=== PATIENT | female | born 1955 | race Two or more races ===

== ENCOUNTER 2019-02-02 12:53 | Observation (INO) | payer BC ==
[2019-02-02] MEDS ORDERED: Ondansetron INJ* 2 MG/ML VIAL IV ONE (13:14)
[2019-02-02] MEDS ORDERED: NS 0.9% 1000 ML** 1,000 ML IV ONE ×2 (13:14→16:40)
[2019-02-02] MEDS ORDERED: Meclizine TAB* 12.5 MG PO ONE (13:14)
[2019-02-02] MEDS ORDERED: Lorazepam PYXIS KEY PRN (13:23)
[2019-02-02] MEDS ORDERED: LORazepam INJ* 2 MG/ML 1 ML VIAL IV PUSH ONE (13:23)
[2019-02-02] MEDS ORDERED: Lorazepam PYXIS KEY ONE (13:27)
[2019-02-02 13:30] LABS: ABS Lymphocytes 1.8 10^3/ul (1.0-4.8); ABS Monocytes 0.4 10^3/ul (0-0.8); ABS Neutrophils 5.8 10^3/ul (1.5-7.7); Eosinophil % 0.2 %; Hematocrit 43 % (35-47); Hemoglobin 14.9 g/dL (12.0-16.0); Lymphocyte % 22.2 %; Mean Corpuscular HGB Conc 35 g/dL (31-36); Mean Corpuscular Hemoglobin 30 pg (27-31); Mean Corpuscular Volume 88 fL (80-97); Mean Platelet Volume 7.8 fL (7.4-10.4); Platelet Count 346 10^3/uL (150-450); Red Cell Distribution Width 13 % (10-15); White Blood Count 7.9 10^3/uL (3.5-10.8)
[2019-02-02 13:35] LABS: INR 1.1 (0.82-1.09)
[2019-02-02 13:46] LABS: Activated Partial Thrombo Time 30.6 seconds (26.0-38.0)
[2019-02-02 13:56] LABS: Albumin 4.5 g/dL (3.2-5.2); Albumin/Globulin Ratio 1.5 (1-3); BUN/Creatinine Ratio 19.3 (8-20); EGFR African American 129.2 (>60); EGFR Non-African American 106.8 (>60); Globulin 3.1 g/dL (2-4); Magnesium 1.7 mg/dL (1.9-2.7); Potassium 4.1 mmol/L (3.5-5.0); Total Bilirubin 0.5 mg/dL (0.2-1.0); Total Protein 7.6 g/dL (6.4-8.9)
--- NOTE | 2019-02-02 15:00 | ED ---
Dizziness - HPI Summary HPI Summary: This patient is a 63-year-old female with a history of ovarian cancer, treated in 2018 2008, as well as gastric bypass surgery 3 years ago, hypothyroidism presenting to the ED with chief complaint of dizziness and nausea x 6-7 days. She states her sxs began with LAMB and dizziness. Patient states she only feels well when she is lying flat and not moving. She states when attempting to move her head, she becomes very dizzy and nauseous. Sxs are worse with sided to side movement and better with up and down movement, however still present. Denies PO intake x 2 days d/t the dizziness and decreased PO intake over this week. No hx of vertigo. Hx of dehydration following gastric bypass and was hospitalized for this. She denies any LAMB at this time on arrival. She denies any abdominal pain, urinary symptoms, diarrhea or constipation. Last BM on , with no associated diarrhea or constipation. Pt unable to state if the room is spinning or she feels she is spinning. She continues to state "just dizziness" when asked. Nausea accompanying the dizziness only when lifting her head or turning her head from side to side. Denies visual changes at this time, but when moving head sided to side, it takes a minute for her to "focus." Denies blood thinners. Current medications include B12, levothyroxine, and ranitidine. Gastric bypass by Dr. Anton. PCP is Dr. Duque. - History Of Current Complaint Chief Complaint: EDNauseaVomitDiarrh Stated Complaint: GENERAL ILLNESS/WEAKNESS PER Time Seen by Provider: 02/02/19 13:09 Hx Obtained From: Patient, Family/Shape Hand Severity Initially: Severe Severity Currently: Severe Character: Dizzy, Unable To Describe Aggravating Factor(s): Position Change, Supine To Erect, Change In Head Position Alleviating Factor(s): Rest, Lying Down, Closing Eyes Associated Signs And Symptoms: Positive: Nausea, Inability to Walk. Negative: Diarrhea, Diaphoresis, Tinnitus, Chest Pain, Palpitations, Unsteady Gait, Visual Changes, Fever, Chills, Slurred Speech - Risk Factors Cardiac Risk Factors: Negative CVA Risk Factor: Negative - Allergies/Home Medications Allergies/Adverse Reactions: Allergies Allergy/AdvReac Type Severity Reaction Status Date / Time MS Bee Venom [Bee Venom] Allergy Unknown Anaphylatic Verified 11/13/15 06:54 Shock citric acid [From DDAVP] Allergy Unknown Verified 04/25/18 15:39 Reaction Details desmopressin [From DDAVP] Allergy Unknown Verified 04/25/18 15:39 Reaction Details MS Statins [Statins] Allergy AFFECTS Verified 11/13/15 06:54 LIVER sodium phosphate [From DDAVP] Allergy Unknown Verified 04/25/18 15:39 Reaction Details MS Aspirin [Aspirin] AdvReac Unknown VOMIT BLOOD Verified 11/13/15 06:54 MS Codeine [Codeine] AdvReac Unknown Rash Verified 11/13/15 06:54 MS Morphine [Morphine] AdvReac Unknown Vomiting Verified 11/13/15 06:54 MS Penicillins [PCN] AdvReac Unknown Hives Verified 11/13/15 06:54 PMH/Surg Hx/FS Hx/Imm Hx Previously Healthy: Yes Endocrine/Hematology History: Reports: Hx Thyroid Disease Denies: Hx Anticoagulant Therapy Cardiovascular History: Reports: Hx Hypercholesterolemia, Hx Hypertension, Other Cardiovascular Problems/Disorders - DVT RIGHT LEG - 2008 Respiratory History: Reports: Hx Sleep Apnea Comment Only: Hx Pulmonary Embolism - HX OF X 2 DURING CHEMOTHERPHY, 2008 GI History: Reports: Hx Gastroesophageal Reflux Disease, Hx Gastrointestinal Bleed, Hx Hiatal Hernia - REPAIRED 02/2015, Hx Ulcer History: Denies: Other Problems/Disorders Musculoskeletal History: Reports: Hx Arthritis, Other Musculoskeletal History - back surgery Denies: Hx Osteoporosis Sensory History: Reports: Hx Cataracts - BEGINNING BILATERAL, Hx Contacts or Glasses Denies: Hx Hearing Aid Opthamlomology History: Reports: Hx Cataracts - BEGINNING BILATERAL, Hx Contacts or Glasses Neurological History: Reports: Hx Migraine, Hx Seizures - 33 yrs ago - Cancer History Cancer Type, 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 hysterectomy. 2016 lap gastric sleeve. Cancer staging surgery. 3 c-sections. Oopherectomy Hx Anesthesia Reactions: No Infectious Disease History: No Infectious Disease History: Reports: Traveled Outside the [place] in Last 30 Days Denies: Hx Clostridium Difficile, Hx Hepatitis, Hx Human Immunodeficiency Virus (HIV), Hx of Known/Suspected MRSA, Hx Shingles, Hx Tuberculosis - STATES WILL TEST POSITIVE DUE TO TYPE OF VACCINE GIVEN IN [place], Hx Known/Suspected VRE, Hx Known/Suspected VRSA, History Other Infectious Disease - Social History Occupation: Unemployed Lives: With Family Alcohol Use: Rare Alcohol Amount: 1 month Substance Use Type: Reports: None Smoking Status (MU): Former Smoker Type: Cigarettes Amount Used/How Often: 2 PPD Have You Smoked in the Last Year: No Review of Systems Positive: Skin Diaphoresis. Negative: Fever, Chills, Fatigue Negative: Photophobia, Blurred Vision Negative: Palpitations, Chest Pain Negative: Shortness Of Breath, Cough Positive: Nausea Genitourinary: Negative Neurological: Other - dizziness All Other Systems Reviewed And Are Negative: Yes Physical Exam Triage Information Reviewed: Yes Vital Signs On Initial Exam: Initial Vitals Temp Pulse Resp BP Pulse Ox 96.9 F 85 26 155/76 100 02/02/19 12:57 02/02/19 12:57 02/02/19 12:57 02/02/19 12:57 02/02/19 12:57 Vital Signs Reviewed: Yes Appearance: Positive: Ill-Appearing Skin: Positive: Diaphoretic Head/Face: Positive: Normal Head/Face Inspection Eyes: Positive: EOMI, VAMSI, Conjunctiva Clear Neck: Positive: Supple, Nontender, No Lymphadenopathy Respiratory/Lung Sounds: Positive: Clear to Auscultation, Breath Sounds Present Cardiovascular: Positive: RRR, Pulses are Symmetrical in both Upper and Lower Extremities Abdomen Description: Positive: Nontender, Soft Musculoskeletal: Positive: Normal Neurological: Positive: Sensory/Motor Intact, Alert, Oriented to Person Place, Time, Finger to Nose - intact, Speech Normal Psychiatric: Positive: Normal, Affect/Mood Appropriate Procedures - Sedation Patient Received Moderate/Deep Sedation with Procedure: No Diagnostics - Vital Signs Vital Signs Temp Pulse Resp BP Pulse Ox 02/02/19 14:00 59 100 02/02/19 13:39 14 02/02/19 13:12 142 91 02/02/19 12:57 96.9 F 85 26 155/76 100 - Laboratory Lab Results: Lab Results 02/02/19 02/02/19 02/02/19 Range/Units 13:18 13:18 13:18 WBC 7.9 (3.5-10.8) 10^3/uL RBC 4.90 H (3.70-4.87) 10^6 /uL Hgb 14.9 (12.0-16.0) g/dL Hct 43 (35-47) % MCV 88 (80-97) fL MCH 30 (27-31) pg MCHC 35 (31-36) g/dL RDW 13 (10-15) % Plt Count 346 (150-450) 10^3/uL MPV 7.8 (7.4-10.4) fL Neut % (Auto) 72.6 % Lymph % (Auto) 22.2 % [place] % (Auto) 4.6 % Eos % (Auto) 0.2 % Baso % (Auto) 0.4 % Absolute Neuts (auto) 5.8 (1.5-7.7) 10^3/ul Absolute Lymphs (auto) 1.8 (1.0-4.8) 10^3/ul Absolute Monos (auto) 0.4 (0-0.8) 10^3/ul Absolute Eos (auto) 0.0 (0-0.6) 10^3/ul Absolute Basos (auto) 0.0 (0-0.2) 10^3/ul Absolute Nucleated RBC 0.0 10^3/ul Nucleated RBC % 0.0 INR (Anticoag Therapy) 1.10 H (0.82-1.09) APTT 30.6 (26.0-38.0) seconds Sodium 137 (135-145) mmol/L Potassium 4.1 (3.5-5.0) mmol/L Chloride 99 L (101-111) mmol/L Carbon Dioxide 18 L (22-32) mmol/L Anion Gap 20 H (2-11) mmol/L BUN 11 (6-24) mg/dL Creatinine 0.57 (0.51-0.95) mg/dL Est GFR ( Amer) 129.2 (>60) Est GFR (Non-Af Amer) 106.8 (>60) BUN/Creatinine Ratio 19.3 (8-20) Glucose 114 H (70-100) mg/dL Calcium 10.0 (8.6-10.3) mg/dL Magnesium 1.7 L (1.9-2.7) mg/dL Total Bilirubin 0.50 (0.2-1.0) mg/dL AST 48 H (13-39) U/L ALT 12 (7-52) U/L Alkaline Phosphatase 71 (34-104) U/L Troponin I 0.00 (<0.03) ng/mL Total Protein 7.6 (6.4-8.9) g/dL Albumin 4.5 (3.2-5.2) g/dL Globulin 3.1 (2-4) g/dL Albumin/Globulin Ratio 1.5 (1-3) TSH (0.34-5.60) mcIU/mL 02/02/19 Range/Units 13:19 WBC (3.5-10.8) 10^3/uL RBC (3.70-4.87) 10^6 /uL Hgb (12.0-16.0) g/dL Hct (35-47) % MCV (80-97) fL MCH (27-31) pg MCHC (31-36) g/dL RDW (10-15) % Plt Count (150-450) 10^3/uL MPV (7.4-10.4) fL Neut % (Auto) % Lymph % (Auto) % [place] % (Auto) % Eos % (Auto) % Baso % (Auto) % Absolute Neuts (auto) (1.5-7.7) 10^3/ul Absolute Lymphs (auto) (1.0-4.8) 10^3/ul Absolute Monos (auto) (0-0.8) 10^3/ul Absolute Eos (auto) (0-0.6) 10^3/ul Absolute Basos (auto) (0-0.2) 10^3/ul Absolute Nucleated RBC 10^3/ul Nucleated RBC % INR (Anticoag Therapy) (0.82-1.09) APTT (26.0-38.0) seconds Sodium (135-145) mmol/L Potassium (3.5-5.0) mmol/L Chloride (101-111) mmol/L Carbon Dioxide (22-32) mmol/L Anion Gap (2-11) mmol/L BUN (6-24) mg/dL Creatinine (0.51-0.95) mg/dL Est GFR ( Amer) (>60) Est GFR (Non-Af Amer) (>60) BUN/Creatinine Ratio (8-20) Glucose (70-100) mg/dL Calcium (8.6-10.3) mg/dL Magnesium (1.9-2.7) mg/dL Total Bilirubin (0.2-1.0) mg/dL AST (13-39) U/L ALT (7-52) U/L Alkaline Phosphatase (34-104) U/L Troponin I (<0.03) ng/mL Total Protein (6.4-8.9) g/dL Albumin (3.2-5.2) g/dL Globulin (2-4) g/dL Albumin/Globulin Ratio (1-3) TSH 2.56 (0.34-5.60) mcIU/mL Result Diagrams: 02/02/19 13:18 02/03/19 06:05 Lab Statement: Any lab studies that have been ordered have been reviewed, and results considered in the medical decision making process. Dizzy Course/Dx - Course Course Of Treatment: Physical examination, the patient appears ill. She appears diaphoretic and states this is because she is extremely nauseous. Patient was able to ambulate into the triage room, but was immediately brought back to a room. Patient was given Ativan and Zofran IV and labs were obtained. CT brain obtained which shows: IMPRESSION: NO EVIDENCE FOR ACUTE INTRACRANIAL ABNORMALITY. Labs obtained which shows a anion gap of 20, CO2 18, and trop 0.00. EKG deferred by provider d/t patient diaphoresis and dizziness. Pt did state she had heaviness in her chest on arrival, however this was d/t breathing heavily from her nausea (pt states.) Pt states she has felt like this for approximately 1 week. Sxs have become more severe, especially in the last 2 days. Decreased PO intake. I have asked my attending, Dr Mo to also see the patient. Neuro exam could not be performed on arrival and this was deferred until medications were given with some improvement. On re-examaination , pt continues to endorse dizziness, rating 5/10 and does not believe she can ambulate, she is now sitting upright (which makes her sxs worse.) Neuro exam normal. Pt continues to deny LAMB. Nausea improved with medications. Discussed with neurologist Dr. Babcock who will see pt in AM if she fails to improve. Repleted fluids. Discussed with hospitalist, Dr Griffin who will admit patient for observation. Pt stable at this time. - Diagnoses Differential Diagnosis/HQI/PQRI: Benign Paroxysmal Positional Vertigo, CVA, Hypovolemia, Metabolic Abnormality, Transient Ischemic Attack Provider Diagnoses: Dizziness - Provider Notifications Discussed Care Of Patient With: Kashif Babcock Instructed by Provider To: Admit As Inpatient Discharge ED - Sign-Out/Discharge Documenting (check all that apply): Patient Departure - Discharge Plan Condition: Good Disposition: ADMITTED TO [facility] - Billing Disposition and Condition Condition: GOOD Disposition: Admitted to [facility] - Attestation Statements Provider Attestation: I have seen the patient with the CHRISTY and agree with the plan and documentation below except as noted: DC 3-year-old female with a history of remote ovarian cancer, gastric bypass who presents with nausea, vertigo vomiting. Physical exam mildly ill-appearing, and normal neuro exam no nystagmus or dysmetria.. CT brain unremarkable labs notable for anion gap 20 likely in setting of starvation ketosis. Patient given fluids, antiemetics will be admitted to hospitalist team. Elie Mo MD
[2019-02-02] MEDS ORDERED: Ondansetron INJ* 2 MG/ML VIAL IV PRN (17:27)
[2019-02-02] MEDS ORDERED: Al Hydrox/Mg Hydrox/Simet LIQ* 30 ML UDC PO PRN (17:27)
[2019-02-02] MEDS ORDERED: Magnesium Sulfate 2 GM IV* 2 GM/50 ML BAG IVPB ONE (17:40)
[2019-02-02] MEDS: NS 0.9% 1000 ML** 1,000 ML IV SCH (19:45)
--- NOTE | 2019-02-02 20:14 | HP ---
CC: Dr. Duque; Dr. Babcock HISTORY AND PHYSICAL: DATE OF ADMISSION: 02/02/19 PRIMARY CARE PROVIDER: Dr. Duque. NEUROLOGY: Dr. Babcock. CHIEF COMPLAINT: Dizziness. 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 The patient stated that approximately a week ago, she suddenly developed an onset of nausea, sensation of dizziness and heat. That was the start of her dizziness that had been ongoing for the past 7 days. She stated that when she looks to the left fast enough, she gets double vision occasionally. She feels dizzy, feeling like "being on a ship." Her gait is very unsteady and she needs to hold on to objects to be able to ambulate. She continues to be nauseated and retches or vomits whenever she tries to keep anything down. She has not been able to have a full meal for the past 7 days. She denies abdominal pain. Apart from double vision when she looks to the left occasionally, she denies any blurry vision. She has not been ill with any upper respiratory infection. Initially 7 days ago, she stated that she did develop a headache at the onset of the symptoms, but that resolved by now. She just came back from [place] approximately 9 days ago. The patient is going to be placed on overnight observation with a diagnosis of vertigo. PAST MEDICAL HISTORY: 1. History of Bhavin-Jorje syndrome with ovarian cancer, status post chemotherapy and subtotal hysterectomy and oophorectomy in 2007, currently in remission. 2. History of status post laparoscopic sleeve gastrectomy in 2016 and at that point, the patient also had hiatal hernia repair. 3. Hypothyroidism. 4. Gastroesophageal reflux disease. 5. History of elevated LFTs. 6. History of obstructive sleep apnea that resolved after her bariatric surgery. 7. History of impaired fasting glucose that resolved after her bariatric surgery. 8. History of lumbar laminectomy. 9. The patient has history of pulmonary embolism around the time when she was treated for ovarian cancer and was thought to be related to her malignancy. MEDICATIONS: Include: 1. Levothyroxine 75 mcg daily. 2. Multiple dietary supplements. ALLERGIES: DDAVP (citric acid, desmopressin, sodium phosphate), ASA, codeine, morphine, penicillin. FAMILY HISTORY: Notable for [place]-Jorje syndrome in mother with history of colon cancer and sister with history of cervical cancer. SOCIAL HISTORY: The patient has history of 30-pack year smoking, quit in 2008. She denies any alcohol or significant daily alcohol or drug use. 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 Ornelas. REVIEW OF SYSTEMS: Please see history of present illness. All the remaining 12 systems were reviewed with the patient and were otherwise negative. PHYSICAL EXAMINATION GENERAL: The patient is a very pleasant 63-year-old female who is in no acute distress. The patient is alert and oriented x3. VITAL SIGNS: Blood pressure of 147/83, heart rate of 87 and regular, respiratory rate 14, oxygen saturation 97% on room air, temperature 96.9. HEENT: Head: Atraumatic, normocephalic. Eyes: Extraocular muscles are intact. Pupils are equal and reactive to light and accommodation. Oropharynx clear. Mucosa dry. On evaluation of bilateral tympanic membranes that were visualized with an otoscope, there is no evidence of middle ear effusion, no evidence of injection noted. There were slight cerumen noted in both ear canals. NECK: Supple. No JVD. No bruits bilaterally. RESPIRATORY: Clear to auscultation bilaterally. CARDIOVASCULAR: Regular rate and rhythm. No murmur. ABDOMEN: Soft, nontender. Bowel sounds present in all 4 quadrants. EXTREMITIES: There is no edema. Pulses are +2 bilaterally. No clubbing or cyanosis. NEURO EVALUATION: Speech clear. Cranial nerves II through XII grossly intact. Nystagmus noted with left lateral gaze-fast phase to the left. Motor strength is 5/5 bilaterally. The patient's [id number] is slightly dysmetric, but is equal bilaterally. Gait was not assessed. [id number] was equal and slightly dysmetric bilaterally. PSYCHIATRIC EVALUATION: Pleasant and cooperative with evaluation, oriented x3 with no evidence of anxiety or depression. DIAGNOSTIC STUDIES/LAB DATA: Urinalysis is pending at the time of dictation. WBC of 7.9, hemoglobin of 14.9, hematocrit of 53, and platelets 346. Sodium was 137, potassium 4.1, chloride 99, carbon dioxide 18, anion gap of 20, BUN 11, creatinine 0.57. Liver function tests showed chronic elevation of AST at 48, otherwise unremarkable. Magnesium of 1.7. Lactic acid of 0.5. Troponin level of 0. TSH of 2.5. Brain CT, impression: "No evidence of acute intracranial abnormality." The patient's EKG showed normal sinus rhythm with heart rate of 72 beats per minute, some motion artifact documented and no ST changes. ASSESSMENT AND PLAN: 1. Sudden onset of vertigo that had been ongoing for a week now. At this point , the patient has no other neurologic findings. She does have a nystagmus to left side. The vertigo appears to be positional and is likely related to benign positional vertigo. Nevertheless, the patient is going to be placed on overnight observation. Ischemic cerebrovascular accident is also in the differential. We will place her on neuro checks every 4 hours . No aspirin, since patient is allergic to it. We will ask Dr. Babcock to see the patient in the morning in consultation. I will leave it up to the neurologist if MRI should be obtained at this point. 2. In regards of the patient's hypothyroidism, her TSH is within normal limits. We will continue current Synthroid of 75 mcg daily. 3. The patient's code status is full. Her surrogate is her . 4. For DVT prophylaxis, the patient is going to be placed on Lovenox subcutaneously. TIME SPENT: Approximately 55 minutes was spent on the admission of this patient , more than half of that time was spent [id number] with the patient during the interview and physical exam. [id number]/[facility] #: [id number] MTDD
[2019-02-02] MEDS: Acetaminophen TAB* 325 MG PO PRN (20:46)
[2019-02-02] MEDS: Enoxaparin(*) 40 MG/0.4 ML SYR SUBCUT SCH (20:46)
[2019-02-02] MEDS: Pantoprazole IV* 40 MG IV SCH (20:46)
[2019-02-02] MEDS: Meclizine TAB* 12.5 MG PO SCH (20:47)
[2019-02-02] MEDS: Aspirin 81 mg CHEW TAB* 81 MG TAB.CHEW PO SCH (20:47)
[2019-02-03] MEDS: Levothyroxine TAB* 75 MCG TAB PO SCH (05:27)
[2019-02-03] MEDS: Meclizine TAB* 12.5 MG PO SCH ×2 (05:27→12:42)
[2019-02-03 06:44] LABS: BUN/Creatinine Ratio 19.1 (8-20); Calcium 8.6 mg/dL (8.6-10.3); EGFR African American 161.4 (>60); EGFR Non-African American 133.4 (>60); Potassium 3.8 mmol/L (3.5-5.0)
[2019-02-03] MEDS: Pantoprazole IV* 40 MG IV SCH (08:32)
[2019-02-03] MEDS: NS 0.9% 1000 ML** 1,000 ML IV SCH ×2 (08:32→23:33)
[2019-02-03] MEDS: Acetaminophen TAB* 325 MG PO PRN (08:33)
[2019-02-03] MEDS: Aspirin 81 mg CHEW TAB* 81 MG TAB.CHEW PO SCH (08:33)
--- NOTE | 2019-02-03 09:36 | PN ---
Subjective Date of Service: 02/03/19 Interval History: Pt feels nauseated and has not eaten breakfast today, but overall better and "less dizzy". sinus natalee on telem Objective Active Medications: Acetaminophen (Tylenol Tab*) 650 mg PO Q4H PRN PRN Reason: PAIN-MILD/TEMP >/= 100.4 Last Admin: 02/03/19 08:33 Dose: 650 mg Al Hydrox/Mg Hydrox/Simethicone (Maalox Plus*) 30 ml PO Q6H PRN PRN Reason: INDIGESTION Enoxaparin Sodium (Lovenox(*)) 40 mg SUBCUT Q24H [facility] Last Admin: 02/02/19 20:46 Dose: 40 mg Sodium Chloride (Ns 0.9% 1000 Ml) 1,000 mls @ 100 mls/hr IV PER RATE [facility] Last Admin: 02/03/19 08:32 Dose: 100 mls/hr Levothyroxine Sodium (Synthroid Tab*) 75 mcg PO DAILY@0600 [facility] Last Admin: 02/03/19 05:27 Dose: 75 mcg Meclizine HCl (Antivert Tab*) 25 mg PO Q8HR [facility] Stop: 02/03/19 23:59 Last Admin: 02/03/19 05:27 Dose: 25 mg Miscellaneous (Ativan Pyxis Romeo) 1 ea N/A .ATIVAN IV ROMEO PRN PRN Reason: PYXIS ROMEO Ondansetron HCl (Zofran Inj*) 4 mg IV Q4H PRN PRN Reason: NAUSEA/VOMITING Last Admin: 02/02/19 19:46 Dose: 4 mg Pantoprazole Sodium (Protonix Iv*) 40 mg IV DAILY [facility] Last Admin: 02/03/19 08:32 Dose: 40 mg Vital Signs - 8 hr 02/03/19 02/03/19 03:15 08:00 Temperature 97.1 F Pulse Rate 55 Respiratory 18 18 Rate Blood Pressure 139/62 (mmHg) O2 Sat by Pulse 100 Oximetry Oxygen Devices in Use Now: None Appearance: 63 yo F in nAD, aAOx3 Eyes: No Scleral Icterus, PERRLA Ears/Nose/Mouth/Throat: NL Teeth, Lips, Gums, Mucous Membranes Moist Neck: NL Appearance and Movements; NL JVP, Trachea Midline Respiratory: Symmetrical Chest Expansion and Respiratory Effort Cardiovascular: NL Sounds; No Murmurs; No JVD, RRR Abdominal: NL Sounds; No Tenderness; No Distention Lymphatic: No Cervical Adenopathy Extremities: No Edema, No Clubbing, Cyanosis Skin: No Rash or Ulcers, No Nodules or Sclerosis Neurological: Alert and Oriented x 3, NL Muscle Strength and Tone Result Diagrams: 02/02/19 13:18 02/03/19 06:05 Additional Lab and Data: Lab Results 02/02/19 02/02/19 02/02/19 Range/Units 13:18 13:18 13:18 WBC 7.9 (3.5-10.8) 10^3/uL RBC 4.90 H (3.70-4.87) 10^6 /uL Hgb 14.9 (12.0-16.0) g/dL Hct 43 (35-47) % MCV 88 (80-97) fL MCH 30 (27-31) pg MCHC 35 (31-36) g/dL RDW 13 (10-15) % Plt Count 346 (150-450) 10^3/uL MPV 7.8 (7.4-10.4) fL Neut % (Auto) 72.6 % Lymph % (Auto) 22.2 % [place] % (Auto) 4.6 % Eos % (Auto) 0.2 % Baso % (Auto) 0.4 % Absolute Neuts (auto) 5.8 (1.5-7.7) 10^3/ul Absolute Lymphs (auto) 1.8 (1.0-4.8) 10^3/ul Absolute Monos (auto) 0.4 (0-0.8) 10^3/ul Absolute Eos (auto) 0.0 (0-0.6) 10^3/ul Absolute Basos (auto) 0.0 (0-0.2) 10^3/ul Absolute Nucleated RBC 0.0 10^3/ul Nucleated RBC % 0.0 INR (Anticoag Therapy) 1.10 H (0.82-1.09) APTT 30.6 (26.0-38.0) seconds Sodium 137 (135-145) mmol/L Potassium 4.1 (3.5-5.0) mmol/L Chloride 99 L (101-111) mmol/L Carbon Dioxide 18 L (22-32) mmol/L Anion Gap 20 H (2-11) mmol/L BUN 11 (6-24) mg/dL Creatinine 0.57 (0.51-0.95) mg/dL Est GFR ( Amer) 129.2 (>60) Est GFR (Non-Af Amer) 106.8 (>60) BUN/Creatinine Ratio 19.3 (8-20) Glucose 114 H (70-100) mg/dL Calcium 10.0 (8.6-10.3) mg/dL Magnesium 1.7 L (1.9-2.7) mg/dL Total Bilirubin 0.50 (0.2-1.0) mg/dL AST 48 H (13-39) U/L ALT 12 (7-52) U/L Alkaline Phosphatase 71 (34-104) U/L Troponin I 0.00 (<0.03) ng/mL Total Protein 7.6 (6.4-8.9) g/dL Albumin 4.5 (3.2-5.2) g/dL Globulin 3.1 (2-4) g/dL Albumin/Globulin Ratio 1.5 (1-3) TSH (0.34-5.60) mcIU/mL 02/02/19 Range/Units 13:19 WBC (3.5-10.8) 10^3/uL RBC (3.70-4.87) 10^6 /uL Hgb (12.0-16.0) g/dL Hct (35-47) % MCV (80-97) fL MCH (27-31) pg MCHC (31-36) g/dL RDW (10-15) % Plt Count (150-450) 10^3/uL MPV (7.4-10.4) fL Neut % (Auto) % Lymph % (Auto) % [place] % (Auto) % Eos % (Auto) % Baso % (Auto) % Absolute Neuts (auto) (1.5-7.7) 10^3/ul Absolute Lymphs (auto) (1.0-4.8) 10^3/ul Absolute Monos (auto) (0-0.8) 10^3/ul Absolute Eos (auto) (0-0.6) 10^3/ul Absolute Basos (auto) (0-0.2) 10^3/ul Absolute Nucleated RBC 10^3/ul Nucleated RBC % INR (Anticoag Therapy) (0.82-1.09) APTT (26.0-38.0) seconds Sodium (135-145) mmol/L Potassium (3.5-5.0) mmol/L Chloride (101-111) mmol/L Carbon Dioxide (22-32) mmol/L Anion Gap (2-11) mmol/L BUN (6-24) mg/dL Creatinine (0.51-0.95) mg/dL Est GFR ( Amer) (>60) Est GFR (Non-Af Amer) (>60) BUN/Creatinine Ratio (8-20) Glucose (70-100) mg/dL Calcium (8.6-10.3) mg/dL Magnesium (1.9-2.7) mg/dL Total Bilirubin (0.2-1.0) mg/dL AST (13-39) U/L ALT (7-52) U/L Alkaline Phosphatase (34-104) U/L Troponin I (<0.03) ng/mL Total Protein (6.4-8.9) g/dL Albumin (3.2-5.2) g/dL Globulin (2-4) g/dL Albumin/Globulin Ratio (1-3) TSH 2.56 (0.34-5.60) mcIU/mL Assess/Plan/Problems-Billing Assessment: 63 yo f with h/o ovarian ca treated in 2007 with no recurrence presents with vertigo - Patient Problems (1) Vertigo Comment: likely BPV, but CVA on differential Pt is allergic to ASA cont IVF and meclizine Neuro consulted (2) DVT prophylaxis Comment: Lovenox Status and Disposition: OBV
[2019-02-03] MEDS ORDERED: Metoclopramide IV* 5 MG/ML 2 ML VIAL IV SLOW PU ONE (10:13)
[2019-02-03] MEDS ORDERED: Ketorolac INJ* 30 MG/ML 1 ML VIAL IV PUSH ONE (10:13)
--- NOTE | 2019-02-03 14:09 | CONS ---
NEUROLOGY CONSULTATION NOTE: DATE OF CONSULT: 02/03/19 CONSULTING PROVIDER: Dr. Gabbi Griffin. REASON FOR CONSULTATION: Vertigo. CHIEF COMPLAINT: Dizziness and headache. HISTORY OF PRESENT ILLNESS: Mrs. 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 The patient presented to [facility] on 02/02/19 with a 2-3 day history of dizziness. The patient stated that her symptoms started on 01/27/19. She came back from a trip that she took with her family to [place]. When she got back, she was catching up on chores. On the , she got really hot and nauseated. She developed dizziness, but mostly lightheadedness. She went to bed for approximately 24 hours. She was back to her normal self on 01/28/19. On 01/31/19, the patient was making dinner and was standing when suddenly she became hot, nauseated, and lightheaded. She was standing for approximately 1 hour. The symptoms did not go away. The symptoms were constant. She stated that every time she turned towards the right side her symptoms worsen. She felt better when she laid flat in a dark, quiet room. She also felt better when she laid on her left side. She developed a headache on 02/02/19 that she described as a sharp stabbing pain in the left retroorbital region. The pain is nonradiating. She has severe photosensitivity and nausea. The pain has been persistent for over 4 hours. She denied any dysarthria, swallowing difficulty, hearing loss, tinnitus, or being exposed to anyone sick around her. She denied any focal weakness or paresthesias. She denied any falls. She was admitted last night and received 2 L of IV fluid and magnesium sulfate. She feels 80% better, but not back to her normal self yet. NIH stroke scale is 0. PAST MEDICAL HISTORY: Viral meningitis in 1981 and complicated with seizures. She took seizure medication for 1 year. She had hypothyroidism, dyslipidemia. She developed liver failure on statin therapy. She does not taken any medication and follows a life-modifying diet. She had 3 C-sections, 1 in 1982, 1984, and 1986. She had a laminectomy from L1 to L4 in 1976. She had a hysterectomy in 1987. She developed ovarian cancer in 2007 and underwent staging surgery. She also underwent chemotherapy and developed a post- chemotherapy related neuropathy. She is currently in remission. She has history of chronic esophagitis and uses Nexium 20 mg once a day. She also had history of DVT and pulmonary embolism during the chemotherapy. After completing a short course of Lovenox, she currently takes Lovenox intermittently only when she flies long distances. FAMILY HISTORY: Daughter suffers from severe migraine headaches. Grandmother of a stroke. SOCIAL HISTORY: The patient is a retired nurse from [employer]. She denied any tobacco use. She drinks a glass of wine once a week. REVIEW OF SYSTEMS: A 14-point review of systems was obtained and otherwise negative except for what is mentioned in the HPI. PHYSICAL EXAM: Vitals: Temperature of 97.1, pulse of 55, respiratory rate of 18, oxygen saturation of 100%, blood pressure of 139/62. General: Well- nourished, well-developed female, in no acute distress. Her eyes are covered and closed due to photophobia. When turning on the lights, the patient developed worsening headaches. Neck is supple and symmetrical with no carotid bruit. Eyes: Conjunctivae/corneas are clear. Unable to perform a funduscopic examination due to severe photophobia. Chest: Clear to auscultation bilaterally. No wheezing or rhonchi. Cardiovascular: Regular rate and rhythm with normal S1, S2. No murmurs. Extremities: Normal range of motion with no cyanosis or edema. Psych: Affect is broad, normal mood, easy to establish rapport. Neurological Examination: The patient is awake, alert, oriented to person, place, time, and general circumstances. Speech and language including expression, repetition, and comprehension were assessed and found to be normal. Cranial Nerves: Pupils are equal, round, and reactive to light. Extraocular muscles are intact. Sensation is intact in the face to light touch and temperature sensation bilaterally. There is no facial asymmetry. Tongue is symmetrical and midline with no atrophy or fasciculation. When examining her eyes closely for any saccadic or rotatory nystagmus, there were nonsustained 3- 4 beats horizontal nystagmus with the fast phase going towards the left side when looking towards the left. There was no skew deviation on either eye. The head impulse test was positive with catch-up saccades when looking towards the right more than the left. The Carlos-Hallpike maneuver bilaterally was negative . Motor examination: Normal tone and bulk throughout. No fasciculation. She has 5/5 strength throughout the upper and lower extremities bilaterally. Sensation is intact to light touch, temperature, and proprioception bilaterally. Coordination: Normal [id number] with no dysmetria. Gait: Normal gait and stance, no ataxia. DIAGNOSTIC STUDIES/LAB DATA: Labs, imaging, and other diagnostic testing: WBC of 7.9, hemoglobin of 14, hematocrit of 43, platelet count of 349. INR is 1.1. Sodium of 138, potassium 3.8, chloride of 106, carbon dioxide 23, anion gap of 9 , BUN of 9, creatinine of 0.47. TSH is 2.56. CT of the head without contrast was completed on 02/02/19. This was personally reviewed. There is no evidence for acute intracranial abnormality. EKG was also reviewed and there was normal sinus rhythm. ASSESSMENT: Mrs. Joann Ornelas is a 63-year-old female with history of viral meningitis in 1981, complicated with seizures for 1 year; migraine headaches; ovarian cancer, status post chemotherapy and post chemotherapy related neuropathy; DVT and pulmonary embolism while receiving chemotherapy who is not on any anticoagulation therapy long-term, who presented to [facility] with symptoms of headaches and dizziness. The patient's examination is notable for positive head impulse test bilaterally suggesting of a vestibular dysfunction, which currently include the vestibular nuclei. The patient's Carlos- Halpike maneuver was negative and there was no evidence of any skew deviation. These findings rule out benign paroxysmal positional vertigo or central cause for her vertigo. She does have history of migraine headaches, which she has not had in years, but has the typical features of a migraine. This raises the suspicion for vestibular migraines contributing to her symptoms. The recent travel causing a change in atmospheric pressure may have triggered a migraine. 1. Dizziness, intermittent vertigo, and headache, all suggestive of vestibular migraine. She has no focal neurological deficits to suspect a structural abnormality. However, given her history of ovarian cancer, focal structure abnormality in the posterior fossa should be further investigated. 2. History of seizures. The patient has not had seizures since 1982. She is not on any anti-seizure medications. 3. History of migraine headaches. This has been well controlled and she has had infrequent headaches over the years. However, I suspect this is possibly an exacerbation of her headache syndrome. 4. History of deep venous thrombosis and pulmonary embolizations. 5. History of ovarian cancer, in remission. RECOMMENDATION: The patient had received magnesium sulfate overnight and she feels better overall. I recommend a dose of Toradol 30 mg IV x1 and Reglan 10 mg IV x1 to help with her current headache that is 7/10 in severity. I encouraged the patient to ambulate and improve her oral intake, especially fluids. If her headaches persist, I recommend a Medrol Dosepak for 7 days. I have ordered an MRI of the brain with and without contrast to rule out any structural abnormality given her history of cancer. However, I do not suspect the MRI will be acutely abnormal. Continue neuro checks every 4 hours. I will sign off to Dr. Archer, but if the MRI is negative, I do not recommend any further neurological workup. She can follow up with a neurologist in the outpatient setting. I will have the staff at [facility] set up an appointment. I discussed these recommendations with Dr. Griffin and Dr. Ornelas, who is the patient 's . I encouraged them to contact me for any questions. [id number]/[facility] #: [id number] MARLENY
[2019-02-03] MEDS: Enoxaparin(*) 40 MG/0.4 ML SYR SUBCUT SCH (17:54)
[2019-02-04] MEDS: Levothyroxine TAB* 75 MCG TAB PO SCH (05:13)
[2019-02-04] MEDS: Pantoprazole IV* 40 MG IV SCH (09:10)
[2019-02-04] MEDS: Acetaminophen TAB* 325 MG PO PRN (09:17)
[2019-02-04] MEDS ORDERED: Gadoteridol* (CONTRAST) 279.3 MG/ML 10 ML IV ONE (10:48)
[2019-02-04 13:12] VITALS: BP 118/52
--- NOTE | 2019-02-05 02:04 | DS ---
CC: Dr. Duque; Dr. Babcock* DISCHARGE SUMMARY: DATE OF ADMISSION: 02/02/19 DATE OF DISCHARGE: 02/04/19 PRIMARY CARE PROVIDER: Dr. Duque. DISPOSITION AT DISCHARGE: Home. CONDITION AT DISCHARGE: Stable. DISCHARGE DIAGNOSIS: Vertigo likely related to vestibular migraine. MEDICATIONS AT DISCHARGE: Unchanged from admission and includes: 1. Levothyroxine 75 mcg daily. 2. Nexium 20 mg daily. 3. Remaining vitamins as previously taken. LABORATORY DATA AND STUDIES PERFORMED DURING THE HOSPITAL STAY: Included: On , sodium of 138, potassium 3.8, chloride 106, carbon dioxide 23, BUN 9, creatinine 0.47. The patient's vitamin B12 level of 944. Brain MRI reported today on 02/04/19, impression: "There are multiple scattered small nonenhancing foci of elevated T2 FLAIR signal within the periventricular and subcortical white matter. While these findings are nonspecific, they can be seen and associated with migraine headaches or as a sequela of previous infection or inflammation and/or chronic small vessel ischemia. Demyelinating disease is also on differential, but is considered less likely in the absence of appropriate clinical presentation. 0.5 cm extraaxial lesion at the right frontal skull suggestive of an osteoma versus an ossified meningioma. There is no mass effect upon the adjacent cortex. No abnormal enhancement of vasogenic edema or space occupying lesion to suggest metastatic disease to the brain." CONSULTATION DURING THE HOSPITAL STAY: Included Dr. Babcock from Neurology. HOSPITALIZATION COURSE: [facility] is a 63-year-old female with history of ovarian cancer and hypothyroidism, who presented complaining of vertigo, nausea and vomiting for 7 days, started 2 days after her arrival from [place] where she was on vacation. The patient was dehydrated, initially placed on observation. She continued to have vertigo and nausea on 02/03/19 and observation was extended by another day. She also had been complaining of intermittent headache during that time and when Dr. Babcock saw the patient for evaluation from Neurology, it was noted that the patient most likely has vestibular migraine. At that point, the patient received a dose of Toradol and Reglan with good results. By the time of discharge, her dizziness resolved. She was able to ambulate in the hallways without any problems and she had no more vertiginous symptoms. Her MRI of the brain noted nonspecific, nonenhancing lesions suggestive of previous migraine. The patient does have history of migraine, but she stated that this is the first episode of migraine that happens ever since she had her children. The patient is going to be discharged home today to follow up with her primary care provider, Dr. Duque in 4 to 7 days. PHYSICAL EXAMINATION: At the time of discharge, blood pressure 123/58, heart rate of 57 and regular, respiratory rate 20, oxygen saturation 97% on room air, temperature 97.9. General: The patient is a very pleasant 63-year-old female who is in no acute distress. The patient is alert and oriented x3. HEENT: Head: Atraumatic, normocephalic. Eyes: Pupils equal and reactive to light and accommodation. Oropharynx clear. Mucosa moist. Neck: Supple. No JVD. No bruits bilaterally. Cardiovascular: Regular rate and rhythm. No murmur. Respiratory: Clear to auscultation bilaterally. Abdomen: Soft, nontender. Bowel sounds are present in all 4 quadrants. Extremities: There is no edema. Pulses are +2 bilaterally. No clubbing or cyanosis. Neuro Evaluation: Speech clear. Cranial nerves II through XII grossly intact. Motor strength is 5/5 bilaterally. Please note that this is a short summary of the patient's hospital stay. Please refer to further medical records for details. TIME SPENT: Approximately 35 minutes were spent on the patient's discharge. [id number]/[facility] #: [id number] MTDD
== END 2019-02-04 14:05 | disposition home or self-care (01) ==
LOC: ED 12:53 → MEDTELE 17:27
PROVIDERS: ADMIT Internal Medicine; ATTEND Internal Medicine
DX: R42 Dizziness and giddiness (principal); F17.210 Nicotine dependence, cigarettes, uncomplicated; E03.9 Hypothyroidism, unspecified; Z85.43 Personal history of malignant neoplasm of ovary; Z87.891 Personal history of nicotine dependence; Z98.84 Bariatric surgery status; K21.9 Gastro-esophageal reflux disease without esophagitis; Z79.899 Other long term (current) drug therapy; R79.89 Other specified abnormal findings of blood chemistry
CPT/HCPCS: 36415; 70450; 70553; 80048; 80053; 82607; 83605; 83735; 84443; 84484; 85025; 85610; 85730; 93005; 99284; A9270-GY; J1650; J1885; J2060; J2405; J2765; J3475

== ENCOUNTER 2023-12-14 04:30 | Inpatient (IN) ==
[2023-12-14] MEDS: Acetaminophen IV 1 GM/100ML 1,000 MG/100 ML BAG IV ONE (04:56)
[2023-12-14] MEDS: Ondansetron 4 mg VIAL 2 MG/ML 2 ml VIAL IV ONE (04:56)
[2023-12-14] MEDS: Lactated Ringers 1000 ml BAG 1,000 ML IV ONE (05:00)
[2023-12-14 05:08] LABS: ABS Lymphocytes 1.1 10^3/uL (1.0-4.8); ABS Monocytes 0.2 10^3/uL (0.0-0.9); ABS Neutrophils 9.6 10^3/uL (1.5-7.6); Eosinophil % 0.1 %; Hematocrit 47.9 % (35-45); Hemoglobin 16.2 g/dL (11.5-14.3); Lymphocyte % 10.4 %; Mean Corpuscular Hemoglobin 30.3 pg (27-33); Mean Corpuscular Hgb Conc 33.9 g/dL (31-36); Mean Corpuscular Volume 89.5 fL (80-97); Mean Platelet Volume 7.9 fL (7.5-11.2); Platelet Count 355 10^3/uL (150-450); Red Blood Count 5.36 10^6/uL (3.63-4.92); Red Cell Distribution Width 12.9 % (12-17)
[2023-12-14 05:12] LABS: INR 0.97 (0.85-1.14)
[2023-12-14 05:26] LABS: High Sens Troponin Baseline 3 pg/mL (<15)
[2023-12-14 06:01] LABS: ALT 31 U/L (7-52); Albumin 5.1 g/dL (3.2-5.2); Albumin/Globulin Ratio 1.6 (1-3); Alkaline Phosphatase 91 U/L (35-149); Anion Gap 14 mmol/L (2-16); Blood Urea Nitrogen 15 mg/dL (6-24); CO2 Carbon Dioxide 25 mmol/L (22-32); Chloride 95 mmol/L (101-111); Creatinine, Serum 0.73 mg/dL (0.51-0.95); Globulin 3.2 g/dL (2-4); Glucose 178 mg/dL (70-100); Sodium 134 mmol/L (135-145); Total Bilirubin 0.8 mg/dL (0.2-1.0); Total Protein 8.3 g/dL (6.4-8.9)
[2023-12-14 06:20] LABS: Lipase 16 U/L (11.0-82.0)
[2023-12-14 06:28] LABS: High Sensitivity Troponin 1 Hr 5 pg/mL (<15)
[2023-12-14] MEDS: Iodixanol 320 (CONTRAST) 100 ML SDV IV ONE (06:35)
[2023-12-14] MEDS: Al Hydrox/Mg Hydrox/Simet LIQ 30 ML UDC PO ONE (06:47)
[2023-12-14 07:12] LABS: Magnesium 1.6 mg/dL (1.9-2.7); Potassium Redraw 4.2 mmol/L (3.5-5.0)
[2023-12-14] MEDS: Diatrizoate Meg/Sod(CONTRAST) 30 ML ORAL.SOLN PO ONE (09:10)
[2023-12-14] MEDS: Ondansetron 4 mg VIAL 2 MG/ML 2 ml VIAL IV PRN (09:32)
[2023-12-14] MEDS: Lactated Ringers 1000 ml BAG 1,000 ML IV SCH (09:35)
[2023-12-14] MEDS: HYDROmorphone 1 MG/1 ML SYRINGE IV PRN (12:27)
[2023-12-15 06:37] LABS: ABS Basophils 0.1 10^3/uL (0.0-0.1); ABS Lymphocytes 1.7 10^3/uL (1.0-4.8); ABS Monocytes 1.1 10^3/uL (0.0-0.9); ABS Neutrophils 9.9 10^3/uL (1.5-7.6); Eosinophil % 0.2 %; Hematocrit 37.4 % (35-45); Hemoglobin 12.5 g/dL (11.5-14.3); Lymphocyte % 13.5 %; Mean Corpuscular Hemoglobin 30.1 pg (27-33); Mean Corpuscular Hgb Conc 33.5 g/dL (31-36); Mean Corpuscular Volume 89.7 fL (80-97); Mean Platelet Volume 7.5 fL (7.5-11.2); Platelet Count 250 10^3/uL (150-450); Red Blood Count 4.16 10^6/uL (3.63-4.92); White Blood Count 12.7 10^3/uL (3.8-11.8)
[2023-12-15 07:16] LABS: Albumin 3.8 g/dL (3.2-5.2); Albumin/Globulin Ratio 1.9 (1-3); Calcium 8.6 mg/dL (8.6-10.3); Creatinine, Serum 0.57 mg/dL (0.51-0.95); Magnesium 1.9 mg/dL (1.9-2.7); Potassium 4.1 mmol/L (3.5-5.0); Total Bilirubin 0.5 mg/dL (0.2-1.0); Total Protein 5.8 g/dL (6.4-8.9); eGFR CKD-EPI 98.3 (>60)
[2023-12-15 09:01] LABS: Urine Appearance Clear; Urine Bilirubin Negative (Negative); Urine Blood Negative (Negative); Urine Color Yellow; Urine Glucose Negative (Negative); Urine Ketones Trace (Negative); Urine Nitrite Negative (Negative); Urine Protein Trace (Negative); Urine Specific Gravity 1.039 (1.002-1.030); Urine Urobilinogen Negative (Negative); Urine pH 6.5 (5.0-8.0)
[2023-12-15 09:06] LABS: Urine Bacteria 1+ /HPF (Absent); Urine Red Blood Cell 2+(6-10/hpf) /HPF (0-Trace); Urine Squamous Epithelial Cell Present /HPF (Absent); Urine White Blood Cell 2+(11-20/hpf) /HPF (0-Trace)
[2023-12-15] MEDS: Lactated Ringers 1000 ml BAG 1,000 ML IV SCH (11:35)
[2023-12-16 08:33] LABS: ABS Lymphocytes 1.3 10^3/uL (1.0-4.8); ABS Monocytes 0.6 10^3/uL (0.0-0.9); Eosinophil % 0.4 %; Hematocrit 37.9 % (35-45); Lymphocyte % 16.9 %; Mean Corpuscular Hemoglobin 30.6 pg (27-33); Mean Corpuscular Hgb Conc 34.2 g/dL (31-36); Mean Corpuscular Volume 89.6 fL (80-97); Mean Platelet Volume 7.8 fL (7.5-11.2); Platelet Count 237 10^3/uL (150-450); Red Blood Count 4.23 10^6/uL (3.63-4.92); Red Cell Distribution Width 12.7 % (12-17)
[2023-12-16 08:39] LABS: Calcium 8.5 mg/dL (8.6-10.3); Creatinine, Serum 0.49 mg/dL (0.51-0.95); Magnesium 1.7 mg/dL (1.9-2.7)
[2023-12-16 10:04] VITALS: BP 157/71
[2023-12-16] MEDS: Magnesium Sulfate 2 gm BAG 2 GM/50 ML BAG IVPB ONE (10:56)
== END 2023-12-16 12:55 | disposition home or self-care (01) | DRG 645 ==
LOC: EDHOLD 04:30 → ED 04:30 → OBSVTOIN 07:33 → MED 11:49
PROVIDERS: ADMIT Student in an Organized Health Care Education/Training Program; ATTEND Student in an Organized Health Care Education/Training Program